=== PATIENT | male | born 1945 | race African-American/Black ===

== ENCOUNTER 2016-09-03 16:30 | Inpatient (IN) | payer MEDICARE, OTHER ==
[~2016-09-03] VITALS: Ht 195.6 cm; Wt 118.4 kg
[2016-09-03] MEDS ORDERED: DILTIAZEM HCL 5MG/ML 5ML VIAL IV ONE (17:00)
[2016-09-03] MEDS ORDERED: ASPIRIN 81MG TABLET PO STA (17:00)
[2016-09-03 17:36] LABS: BASOPHILS % 0.6 % (0.0-2.0); HEMATOCRIT. 43.3 % (42.0-52.0); LYMPHOCYTES % 33.6 % (20.0-50.0); MEAN CORPUSCULAR HEMOGLOBIN 27.9 pg (28.0-32.0); MEAN CORPUSCULAR HGB CONC 32.3 g/dL (31.0-37.0); MEAN CORPUSCULAR VOLUME 86.2 fL (80.0-94.0); MEAN PLATELET VOLUME 8.6 fl (7.4-10.4); MONOCYTES % 7.4 % (2.0-8.0); NEUTROPHILS % 56.4 % (40.0-76.0); PLATELET 207 x1000/uL (130-400); RED BLOOD CELL COUNT 5.02 mill/uL (4.7-6.1); RED CELL DISTRIBUTION WIDTH 14.9 % (11.6-14.6); WHITE BLOOD COUNT 6.4 x1000/uL (4.5-11.0)
[2016-09-03 17:47] LABS: INR 1.1; PARTIAL THROMBOPLASTIN TIME 27.8 sec (24.0-34.0); PROTHROMBIN TIME 11.4 sec
[2016-09-03 17:52] LABS: ALANINE AMINOTRANSFERASE 15 IU/L (13-61); ALBUMIN 3.5 g/dL (3.4-5.0); ANION GAP 12; CALCIUM 8.9 mg/dL (8.5-10.1); CARBON DIOXIDE 26 mEq/L (21-32); CHLORIDE 105 mEq/L (98-107); INDEX HEMOLYSI 1 (1-3); INDEX ICTERIC 1 (1-4); INDEX LIPEMIC 1 (1-3); NT PRO B-TYPE NATRIURETIC PEP 2238 pg/mL (5-125); TROPONIN I < 0.02 ng/mL (0.00-0.04); UREA NITROGEN BLOOD 18 mg/dL (7-21); eGFR > 60 mL/min (>60)
[2016-09-03] MEDS ORDERED: ACETAMINOPHEN 325MG TABLET PO PRN (19:30)
[2016-09-03] MEDS ORDERED: DEXTROSE 50% WATER 50ML SYRINGE IV PRN (19:30)
[2016-09-03] MEDS ORDERED: GUAIFENESIN 200MG/10ML SUGAR FREE UDC PO PRN (19:30)
[2016-09-03] MEDS ORDERED: MAGNESIUM HYDROXIDE 400MG/5ML 30ML UDC PO PRN (19:30)
[2016-09-03] MEDS ORDERED: DIPHENHYDRAMINE 50MG/ML VIAL IV PRN (19:30)
[2016-09-03] MEDS ORDERED: ZOLPIDEM TARTRATE 5MG TABLET PO PRN (19:30)
[2016-09-03] MEDS ORDERED: ONDANSETRON HCL 4MG/2ML VIAL IV PRN (19:30)
[2016-09-03] MEDS ORDERED: MAGNESIUM/ALUMINUM HYDROXIDE/SIMETHICONE 30ML UDC PO PRN (19:30)
[2016-09-03 19:55] VITALS: BP 115/85
[2016-09-03 20:00] VITALS: BP 115/85
[2016-09-03] MEDS: BLOOD SUGAR DIAGNOSTIC STRIP TEST SCH (21:00)
[2016-09-03] MEDS: METOPROLOL TARTRATE 25MG TABLET PO SCH (21:07)
[2016-09-03] MEDS: ATORVASTATIN CALCIUM 40MG TABLET PO SCH (21:07)
[2016-09-03] MEDS: ENOXAPARIN 120MG/0.8ML SYR SUBCUT SCH (21:08)
[2016-09-03] MEDS: SODIUM CHLORIDE 0.9% INJ 3ML FLUSH IVF SCH (21:09)
[2016-09-03 22:15] LABS: CLARITY URINE CLEAR (CLEAR); COLOR URINE YELLOW (YELLOW); GLUCOSE URINE NEGATIVE (NEGATIVE); KETONES URINE NEGATIVE (NEGATIVE); LEUKOCYTE ESTERASE URINE NEGATIVE (NEGATIVE); NITRITE URINE NEGATIVE (NEGATIVE); OCCULT BLOOD URINE NEGATIVE (NEGATIVE); PROTEIN URINE NEGATIVE (NEGATIVE); SPECIFIC GRAVITY URINE 1.024 (1.005-1.030); UROBILINOGEN URINE 0.2 E.U./dL (0.2-1.0)
[2016-09-03] MEDS: INSULIN ASPART 100 UNITS/ML SUBCUT SCH (22:30)
[2016-09-03] MEDS ORDERED: FISH OIL PO (22:54)
[2016-09-03] MEDS ORDERED: CYAN10009 SL (22:54)
[2016-09-03] MEDS ORDERED: ALLO300T2 PO (22:54)
[2016-09-03] MEDS ORDERED: DULO60CA44 PO (22:54)
[2016-09-03] MEDS ORDERED: ASPI-1035 PO (22:54)
[2016-09-03] MEDS ORDERED: METO25TA6 PO (22:54)
[2016-09-03] MEDS ORDERED: ZOLP10TA2 PO (22:54)
[2016-09-03] MEDS ORDERED: COLC0.6T66 PO (22:54)
[2016-09-03] MEDS ORDERED: ATOR40TA70 PO (22:54)
[2016-09-03] MEDS ORDERED: ISOS30TA6 PO (22:54)
[2016-09-03] MEDS ORDERED: METF-246 PO (22:54)
[2016-09-04] VITALS: BP 133/94
[2016-09-04 04:00] VITALS: BP 112/74
[2016-09-04] MEDS: BLOOD SUGAR DIAGNOSTIC STRIP TEST SCH ×4 (06:17→20:07)
[2016-09-04] MEDS: SODIUM CHLORIDE 0.9% INJ 3ML FLUSH IVF SCH ×3 (06:17→21:55)
[2016-09-04] MEDS: INSULIN ASPART 100 UNITS/ML SUBCUT SCH ×4 (06:21→20:07)
[2016-09-04 08:00] VITALS: BP 127/96
[2016-09-04] MEDS: METFORMIN HCL 500MG TABLET PO SCH ×2 (08:10→18:10)
[2016-09-04] MEDS: ENOXAPARIN 120MG/0.8ML SYR SUBCUT SCH ×2 (08:43→21:50)
[2016-09-04] MEDS: ALLOPURINOL 300 MG TABLET PO SCH (09:11)
[2016-09-04] MEDS: COLCHICINE 0.6MG TABLET PO SCH (09:11)
[2016-09-04] MEDS: FISH OIL/OMEGA-3 FATTY ACIDS 1000MG CAPSULE PO SCH (09:11)
[2016-09-04] MEDS: DULOXETINE HCL 60MG DR CAPSULE PO SCH (09:11)
[2016-09-04] MEDS: METOPROLOL TARTRATE 25MG TABLET PO SCH ×2 (09:11→20:48)
[2016-09-04] MEDS: TAMSULOSIN HCL 0.4MG SR CAPSULE PO SCH (09:12)
[2016-09-04] MEDS: ISOSORBIDE MONONITRATE 30MG TABLET SR 24HR PO SCH (09:12)
[2016-09-04] MEDS ORDERED: SODIUM CHLORIDE 0.9% 10ML VIAL ONE (11:19)
[2016-09-04] MEDS ORDERED: IOHEXOL-350 100 ML BOTTLE ONE (11:19)
[2016-09-04] MEDS ORDERED: HEPARIN SODIUM 1,000 UNIT/1ML VIAL IV ONE (11:31)
[2016-09-04 12:30] VITALS: BP 114/86
[2016-09-04] MEDS ORDERED: LIDOCAINE HCL 1% 20ML VIAL (Pyxis) INJ ONE ×2 (15:30→15:57)
[2016-09-04] MEDS ORDERED: MIDAZOLAM HCL 2 MG/2 ML VIAL ONE (15:55)
[2016-09-04] MEDS ORDERED: PROPOFOL 200MG/20ML VIAL IV ONE (15:58)
[2016-09-04] MEDS ORDERED: CEFAZOLIN 1000MG PREMIX 50 ML IV ONE (16:40)
[2016-09-04] MEDS ORDERED: ACETAMINOPHEN 325MG TABLET PO PRN (19:45)
[2016-09-04] MEDS ORDERED: MORPHINE SULFATE 2 MG/ML CPJ (NOT FOR IM USE) IV PRN (19:45)
[2016-09-04] MEDS ORDERED: ONDANSETRON HCL 4MG/2ML VIAL IV PRN (19:45)
[2016-09-04] MEDS ORDERED: ATROPINE SULFATE 1MG/10ML SYR IV PRN (19:45)
[2016-09-04 20:00] VITALS: BP 119/77
[2016-09-04] MEDS: ATORVASTATIN CALCIUM 40MG TABLET PO SCH (20:48)
[2016-09-04] MEDS: TRAMADOL 50MG TABLET PO PRN (21:50)
[2016-09-04 22:00] VITALS: BP 133/84
[2016-09-05] VITALS (7 sets, daily range): BP systolic 124–143; BP diastolic 57–93
[2016-09-05] MEDS: SODIUM CHLORIDE 0.9% INJ 3ML FLUSH IVF SCH (05:32)
[2016-09-05] MEDS: METFORMIN HCL 500MG TABLET PO SCH (06:29)
[2016-09-05] MEDS: BLOOD SUGAR DIAGNOSTIC STRIP TEST SCH ×2 (06:33→12:20)
[2016-09-05] MEDS: INSULIN ASPART 100 UNITS/ML SUBCUT SCH ×2 (06:33→12:20)
[2016-09-05 06:56] LABS: ANION GAP 13; CALCIUM 8.3 mg/dL (8.5-10.1); CARBON DIOXIDE 27 mEq/L (21-32); CHLORIDE 107 mEq/L (98-107); INDEX HEMOLYSI 1 (1-3); INDEX ICTERIC 1 (1-4); INDEX LIPEMIC 1 (1-3); UREA NITROGEN BLOOD 19 mg/dL (7-21); eGFR > 60 mL/min (>60)
[2016-09-05 07:18] LABS: BASOPHILS % 0.5 % (0.0-2.0); EOSINOPHILS % 2.1 % (0.0-5.0); HEMATOCRIT. 38.7 % (42.0-52.0); HEMOGLOBIN. 12.6 g/dL (14.0-18.0); LYMPHOCYTES % 29.6 % (20.0-50.0); MEAN CORPUSCULAR HEMOGLOBIN 27.7 pg (28.0-32.0); MEAN CORPUSCULAR HGB CONC 32.4 g/dL (31.0-37.0); MEAN CORPUSCULAR VOLUME 85.5 fL (80.0-94.0); MEAN PLATELET VOLUME 9.3 fl (7.4-10.4); MONOCYTES % 8.9 % (2.0-8.0); NEUTROPHILS % 58.9 % (40.0-76.0); PLATELET 178 x1000/uL (130-400); RED BLOOD CELL COUNT 4.53 mill/uL (4.7-6.1); WHITE BLOOD COUNT 6.7 x1000/uL (4.5-11.0)
[2016-09-05] MEDS: FISH OIL/OMEGA-3 FATTY ACIDS 1000MG CAPSULE PO SCH (08:32)
[2016-09-05] MEDS: ALLOPURINOL 300 MG TABLET PO SCH (08:32)
[2016-09-05] MEDS: ENOXAPARIN 120MG/0.8ML SYR SUBCUT SCH (08:32)
[2016-09-05] MEDS: METOPROLOL TARTRATE 25MG TABLET PO SCH (08:32)
[2016-09-05] MEDS: COLCHICINE 0.6MG TABLET PO SCH (08:33)
[2016-09-05] MEDS: ISOSORBIDE MONONITRATE 30MG TABLET SR 24HR PO SCH (08:33)
[2016-09-05] MEDS: DULOXETINE HCL 60MG DR CAPSULE PO SCH (08:33)
[2016-09-05] MEDS: TAMSULOSIN HCL 0.4MG SR CAPSULE PO SCH (08:33)
[2016-09-05] MEDS: TRAMADOL 50MG TABLET PO PRN (10:42)
== END 2016-09-05 13:10 | disposition home or self-care (01) | DRG 273 ==
LOC: ER 16:31 → 7WST 17:43 → 3WST 09-04 19:55
PROVIDERS: ADMIT Internal Medicine; ATTEND Internal Medicine
PROC: 02583ZZ Destruction of Conduction Mechanism, Percutaneous Approach (ICD-10-PCS; principal; 2016-09-04)
DX: I48.92 Unspecified atrial flutter (principal); I50.43 Acute on chronic combined systolic (congestive) and diastolic (congestive) heart failure; G91.2 (Idiopathic) normal pressure hydrocephalus; I25.10 Atherosclerotic heart disease of native coronary artery without angina pectoris; M10.9 Gout, unspecified; E11.9 Type 2 diabetes mellitus without complications; I10 Essential (primary) hypertension; Z96.653 Presence of artificial knee joint, bilateral; E66.9 Obesity, unspecified; Z83.3 Family history of diabetes mellitus; Z82.49 Family history of ischemic heart disease and other diseases of the circulatory system; Z98.2 Presence of cerebrospinal fluid drainage device; Z90.49 Acquired absence of other specified parts of digestive tract; Z68.30 Body mass index [BMI] 30.0-30.9, adult
CPT/HCPCS: 36415; 70450; 71010; 73610; 75572; 80048; 80053; 81003; 82962; 83036; 83880; 84443; 84484; 85025; 85610; 85730; 93005; 93613; 93653; 93662; 93970; 96374; 99285; A4216; C1731; C1732; C1759; C1893; J0690; J1644; J1650; J1815; J2250; J2704; J3490; J7030; J7050; Q9967